=== PATIENT | male | born 1970 ===

== ENCOUNTER 2019-07-24 19:06 | Emergency (ER) | payer MEDICAID ==
[2019-07-24] MEDS ORDERED: Sodium Chloride 0.9% 1,000 ML IV ONE (19:51)
[2019-07-24 19:59] LABS: ANION GAP 15.8 mEq/L (7-13); CHLORIDE,CL 95 mmol/L (98-107); SODIUM,NA 131 mmol/L (136-145)
[2019-07-24] MEDS ORDERED: cefTRIAXone 1 GM in Sodium Chloride 0.9% 50 ML IV ONE (20:27)
--- NOTE | 2019-07-24 20:27 | EDM.PDOC ---
ED HPI GENERAL MEDICAL PROBLEM - General Chief Complaint: Respiratory Problem Stated Complaint: AMBULANCE Time Seen by Provider: 07/24/19 19:06 Source of Information: Reports: Patient, EMS History Limitations: Reports: No Limitations - History of Present Illness INITIAL COMMENTS - FREE TEXT/NARRATIVE: SOB today, ran out of albuterol inhaler. Recent Hospitalization in [place] for COVID + Released 3 days prior told needed oxygen but here local for . Used inhaler greater than 10 times today. 70% oxygen on arrival EMS to home. 3+ diarrhea stools today fevers at home productive cough green sputum. nausea no vomiting. Denied drug use except cannabis. Reported had been wearing mask but staying with mother and EMS reported multiple family members in home no masks or room to social distance. Treatments PUBLIC INTERVIEWER: Reports: IV/IO, Oxygen Back Pain Score (Numeric/FACES): 7 - Related Data Allergies Allergy/AdvReac Type Severity Reaction Status Date / Time latex Allergy Rash Verified 07/24/19 19:27 Home Meds: Home Meds Albuterol Sulfate [Albuterol Sulfate Hfa] 07/24/19 [History] FLUoxetine HCl [Fluoxetine HCl] 20 mg PO DAILY 07/24/19 [History] Gabapentin [Neurontin] 600 mg PO BID 07/24/19 [History] Past Medical History Respiratory History: Reports: Asthma Social & Family History - Family History Family Medical History: Noncontributory - Tobacco Use Smoking Status *Q: Current Status Unknown - Caffeine Use Caffeine Use: Reports: Coffee, Soda - Alcohol Use Date of Last Drink: 07/21/19 - Recreational Drug Use Recreational Drug Use: Yes Drug Use in Last 12 Months: Yes Recreational Drug Type: Reports: Marijuana/Hashish Recreational Drug Use Frequency: Patient Refuses To Answer Recreational Drug Last Use: 07/21/2019 ED ROS GENERAL - Review of Systems Review Of Systems: Comprehensive ROS is negative, except as noted in HPI. ED EXAM, GENERAL - Physical Exam Exam: See Below Exam Limited By: No Limitations General Appearance: Alert, Moderate Distress, Thin Eye Exam: Bilateral Eye: EOMI Ears: Normal External Exam, Normal TMs Nose: Normal Inspection Throat/Mouth: Normal Inspection Head: Atraumatic, Normocephalic Neck: Normal Inspection Respiratory/Chest: Normal Breath Sounds, Decreased Breath Sounds, Prolonged Expiration. No: No Accessory Muscle Use, Wheezing Cardiovascular: Normal Peripheral Pulses, Regular Rate, Rhythm, Tachycardia GI/Abdominal: Normal Bowel Sounds, Soft Back Exam: Normal Inspection Extremities: Other (track vs recent olab drw sites above right lateral anticub) Neurological: Alert, Oriented, Normal Cognition Psychiatric: Normal Affect, Normal Mood Skin Exam: Warm, Dry, Intact EKG INTERPRETATION Rhythm: NSR Course - Vital Signs Last Recorded V/S: Last Vital Signs Temp 96.5 F L 07/24/19 21:04 Pulse 97 07/24/19 21:04 Resp 19 07/24/19 21:04 BP 98/76 07/24/19 21:04 Pulse Ox 99 07/24/19 21:04 - Orders/Labs/Meds Orders: Active Orders 24 hr Category Date Time Status CXR [Chest 1V Frontal] [CR] Urgent Exams 07/24/19 19:00 Taken CULTURE BLOOD [BC] Stat Lab 07/24/19 19:14 Received CULTURE BLOOD [BC] Stat Lab 07/24/19 20:20 Received Blood Culture x2 Reflex Set [OM.PC] Stat Oth 07/24/19 19:01 Ordered Isolation [COMM] Routine Oth 07/24/19 19:06 Active Labs: Laboratory Tests 07/24/19 07/24/19 07/24/19 Range/Units 19:09 19:14 19:14 WBC 13.4 H (5.0-10.0) 10^3/uL RBC 4.09 L (4.6-6.2) 10^6/uL Hgb 11.9 L (14.0-18.0) g/dL Hct 34.6 L (40.0-54.0) % MCV 84.6 (80-100) fL MCH 29.1 (27.0-34.0) pg MCHC 34.4 (33.0-35.0) g/dL Plt Count 380 (150-450) 10^3/uL Neut % (Auto) 85.1 H (42.2-75.2) % Lymph % (Auto) 6.7 L (20.5-50.1) % Dickinson % (Auto) 6.5 (2-8) % Eos % (Auto) 1.1 (1.0-3.0) % Baso % (Auto) 0.6 (0.0-1.0) % Add Manual Diff Yes Neutrophils % (Manual) 87 H (42-75) % Band Neutrophils % 1 % Lymphocytes % (Manual) 6 L (20-50) % Monocytes % (Manual) 5 (2-8) % Eosinophils % (Manual) 1 (1-3) % Atypical Lymphocytes Few D-Dimer, Quantitative > 5000 H (0-400) ng/mL Sodium (136-145) mmol/L Potassium (3.5-5.1) mmol/L Chloride (98-107) mmol/L Carbon Dioxide (21-32) mmol/L Anion Gap (7-13) mEq/L BUN (7-18) mg/dL Creatinine (0.70-1.30) mg/dL Est Cr Clr Drug Dosing mL/min Estimated GFR (MDRD) BUN/Creatinine Ratio (No establ ref range) Glucose (74-99) mg/dL Lactic Acid (0.4-2.0) mmol/L Calcium (8.5-10.1) mg/dL Magnesium (1.8-2.4) mg/dL Total Bilirubin (0.2-1.0) mg/dL AST (15-37) U/L ALT (16-63) U/L Alkaline Phosphatase (46-116) U/L Troponin I (0.000-0.056) ng/mL C-Reactive Protein (0.0-0.9) mg/dL B-Natriuretic Peptide (0-100) pg/ml Total Protein (6.4-8.2) g/dL Albumin (3.4-5.0) g/dL Globulin Albumin/Globulin Ratio SARS-CoV-2 RNA (RT-PCR) Negative (NEGATIVE) 07/24/19 07/24/19 Range/Units 19:14 19:14 WBC (5.0-10.0) 10^3/uL RBC (4.6-6.2) 10^6/uL Hgb (14.0-18.0) g/dL Hct (40.0-54.0) % MCV (80-100) fL MCH (27.0-34.0) pg MCHC (33.0-35.0) g/dL Plt Count (150-450) 10^3/uL Neut % (Auto) (42.2-75.2) % Lymph % (Auto) (20.5-50.1) % Dickinson % (Auto) (2-8) % Eos % (Auto) (1.0-3.0) % Baso % (Auto) (0.0-1.0) % Add Manual Diff Neutrophils % (Manual) (42-75) % Band Neutrophils % % Lymphocytes % (Manual) (20-50) % Monocytes % (Manual) (2-8) % Eosinophils % (Manual) (1-3) % Atypical Lymphocytes D-Dimer, Quantitative (0-400) ng/mL Sodium 131 L (136-145) mmol/L Potassium 3.8 (3.5-5.1) mmol/L Chloride 95 L (98-107) mmol/L Carbon Dioxide 24 (21-32) mmol/L Anion Gap 15.8 H (7-13) mEq/L BUN 16 (7-18) mg/dL Creatinine 1.09 (0.70-1.30) mg/dL Est Cr Clr Drug Dosing 78.65 mL/min Estimated GFR (MDRD) > 60 BUN/Creatinine Ratio 14.7 (No establ ref range) Glucose 139 H (74-99) mg/dL Lactic Acid 1.3 (0.4-2.0) mmol/L Calcium 8.2 L (8.5-10.1) mg/dL Magnesium 2.1 (1.8-2.4) mg/dL Total Bilirubin 0.6 (0.2-1.0) mg/dL AST 45 H (15-37) U/L ALT 32 (16-63) U/L Alkaline Phosphatase 124 H (46-116) U/L Troponin I < 0.017 (0.000-0.056) ng/mL C-Reactive Protein 33.5 H (0.0-0.9) mg/dL B-Natriuretic Peptide 109 H (0-100) pg/ml Total Protein 7.7 (6.4-8.2) g/dL Albumin 1.9 L (3.4-5.0) g/dL Globulin 5.8 Albumin/Globulin Ratio 0.33 SARS-CoV-2 RNA (RT-PCR) (NEGATIVE) Meds: Medications Discontinued Medications Generic Name Dose Route Start Last Admin Trade Name Freq PRN Reason Stop Dose Admin Sodium Chloride 1,000 mls @ 100 mls/hr 07/24/19 19:51 05/18/20 20:53 Normal Saline IV 07/25/19 05:50 999 mls/hr .BOLUS ONE Infusion Ceftriaxone Sodium 1 gm/ 50 mls @ 100 mls/hr 07/24/19 20:27 07/24/19 20:35 Sodium Chloride IV 07/24/19 20:56 100 mls/hr ONETIME ONE Administration - Radiology Interpretation Free Text/Narrative:: multifocal pneumonia left greater - Re-Assessments/Exams Free Text/Narrative Re-Assessment/Exam: 07/24/19 20:49 EMS notified Public [facility] with [facility] for Oren Sapp. Dr Burkett TC. Recommend transfer due to risk of decompensation . Dr Dodd Enders accepting of patient. Tx via [facility]. EMS made aware of recent hospitalization for COVID and that current test today negative. Departure - Departure Time of Disposition: 20:42 Disposition: DC/Tfer to Acute Hospital 02 Condition: Undetermined Clinical Impression: Multifocal pneumonia, SOB (shortness of breath), Hypoxia, History of severe acute respiratory syndrome coronavirus 2 (SARS-CoV-2) disease Diarrhea Qualifiers: Diarrhea type: unspecified type Qualified Code(s): R19.7 - Diarrhea, unspecified - Discharge Information *PRESCRIPTION DRUG MONITORING PROGRAM REVIEWED*: Not Applicable *COPY OF PRESCRIPTION DRUG MONITORING REPORT IN PATIENT BLAINE: Not Applicable Forms: ED Department Discharge Sepsis Event Note - Evaluation Sepsis Screening Result: No Definite Risk - Focused Exam Vital Signs: Vital Signs Temp Pulse Resp BP Pulse Ox Pulse Ox 07/24/19 21:04 96.5 F L 97 19 98/76 99 07/24/19 20:51 96.5 F L 100 19 95/67 99 07/24/19 20:24 97.2 F 106 H 19 103/65 99 07/24/19 20:11 97.8 F 108 H 19 102/67 98 07/24/19 20:04 98.1 F 109 H 20 106/65 99 07/24/19 19:51 98 F 115 H 21 H 96/69 97 07/24/19 19:44 114 H 20 100/69 99 07/24/19 19:35 98.8 F 122 H 17 100/69 94 L 07/24/19 19:10 99.1 F 130 H 28 H 105/71 93 L 07/24/19 18:55 96 Date Exam was Performed: 05/19/20 Time Exam was Performed: 01:39 - My Orders Last 24 Hours: My Active Orders 07/24/19 19:00 CXR [Chest 1V Frontal] [CR] Urgent 07/24/19 19:01 Blood Culture x2 Reflex Set [OM.PC] Stat 07/24/19 19:06 Isolation [COMM] Routine 07/24/19 19:14 CULTURE BLOOD [BC] Stat 07/24/19 20:20 CULTURE BLOOD [BC] Stat - Assessment/Plan Last 24 Hours: My Active Orders 07/24/19 19:00 CXR [Chest 1V Frontal] [CR] Urgent 07/24/19 19:01 Blood Culture x2 Reflex Set [OM.PC] Stat 07/24/19 19:06 Isolation [COMM] Routine 07/24/19 19:14 CULTURE BLOOD [BC] Stat 07/24/19 20:20 CULTURE BLOOD [BC] Stat
== END 2019-07-24 21:08 ==
LOC: DL.ED 19:06
DX: J18.9 Pneumonia, unspecified organism (principal); R09.02 Hypoxemia; R19.7 Diarrhea, unspecified; J45.909 Unspecified asthma, uncomplicated; R00.0 Tachycardia, unspecified; Z86.19 Personal history of other infectious and parasitic diseases; Z91.040 Latex allergy status; Z79.899 Other long term (current) drug therapy; Z20.828 Contact with and (suspected) exposure to other viral communicable diseases
CPT/HCPCS: 36415; 71045; 80053; 83605; 83735; 83880; 84484; 85025; 85379; 86140; 87040; 87635; 87804; 96361; 96365; 99285; J0696; J7030; J7050; U0002